=== PATIENT | male | born 1955 | race Caucasian/White ===

== ENCOUNTER 2016-10-31 18:49 | Emergency (ER) | payer OTHER ==
[~2016-10-31 18:49] MED LIST: ASPI81CH CHEW; DIAZ10TA PO; HYOS0.128 PO; IPRA0.02 NEB; MONT10TA2 PO; TERA1CAP3 PO; VENL100T PO
[2016-10-31 18:56] VITALS: BP 148/100; PULSE 94; RESP 18; TEMP 97.8
[2016-10-31] MEDS ORDERED: LIDOCAINE 1%/EPINEPHrine 1:100,000 SOLN 20 ML VIAL INFIL ONE (19:15)
--- NOTE | 2016-10-31 19:22 | PD ---
HPI Chief Complaint: Laceration/Skin Injury Time Seen by Provider: 19:18 Travel History International Travel<30 days: No Contact w/Intl Traveler<30days: No Traveled to known affect area: No History of Present Illness HPI 61-year-old male with PMH of CP, HTN presents to the ED for evaluation of chin laceration. The patient's caregiver is at bedside. She states that the patient states pushed himself up in the chair with his legs, lost balance, fell forward, striking his chin on the hardwood floor. He did not lose consciousness. He denies headache, dizziness, facial or jaw pain. Denies malocclusion of the teeth. Unsure of his last tetanus immunization. PFSH Past Medical History Hx Anticoagulant Therapy: No Arthritis: No Asthma: No Autoimmune Disease: No Blood Disorders: No Anxiety: No Depression: Yes Heart Rhythm Problems: No Cancer: No Cardiovascular Problems: Yes (HTN) High Cholesterol: No Chemotherapy: No Chest Pain: No Congestive Heart Failure: No COPD: No Cerebrovascular Accident: No Diabetes: No Diminished Hearing: No Endocrine: No Gastrointestinal Disorders: No GERD: Yes Glaucoma: No Genitourinary: No Headaches: No Hepatitis: No Hiatal Hernia: Yes Hypertension: Yes Immune Disorder: No Kidney Stones: Yes Musculoskeletal: Yes (SCOLIOSIS) Neurologic: Yes (CEREBRAL PALSEY) Psychiatric: Yes Reproductive: No Respiratory: Yes Immunizations Current: Yes Myocardial Infarction: No Radiation Therapy: No Renal Failure: No Seizures: No Sickle Cell Disease: No Sleep Apnea: Yes Thyroid Disease: No Ulcer: No Past Surgical History Abdominal Surgery: No AICD: No Appendectomy: No Arteriovenous Shunt: No Cardiac Surgery: No Cholecystectomy: No Coronary Stent: Yes Ear Surgery: No Endocrine Surgery: No Eye Surgery: No Genitourinary Surgery: No Gynecologic Surgery: No Joint Replacement: No Neurologic Surgery: Yes ("PACEMAKER" FOR BRAIN STIMULATION) Oral Surgery: No Pacemaker: Yes (BRAIN PACEMAKER) Thoracic Surgery: No Other Surgery: Yes Social History Alcohol Use: Yes (BEER OCC) Tobacco Use: No Substance Use: No Allergies-Medications (Allergen,Severity, Reaction): Coded Allergies: No Known Allergies (Verified , 10/31/16) Reported Meds & Prescriptions Reported Meds & Active Scripts Active Hyoscyamine (Hyoscyamine Sulfate) 0.125 Mg Tab 0.125 Mg PO BID Diazepam 10 Mg Tab 10 Mg PO BID PRN Reported Aspirin 81 Mg Chew 81 Mg CHEW DAILY Terazosin (Terazosin HCl) 1 Mg Cap 1 Mg PO HS Singulair (Montelukast Sodium) 10 Mg Tab 10 Mg PO DAILY Ipratropium Neb (Ipratropium [place]) 0.5 Mg/2.5 Ml Amp 0.5 Mg NEB Q8HR PRN Effexor (Venlafaxine HCl) 100 Mg Tab 100 Mg PO Q8H Review of Systems Except as stated in HPI: all other systems reviewed are Neg Physical Exam Exam Limitations: Clinical Condition (cerebral palsy) Narrative GENERAL: Well-nourished, alert white male in no acute distress. SKIN: Warm and dry. There is a 2 cm laceration just left lateral of midline on the distal aspect of the mandible. HEAD: Normocephalic. No tenderness to palpation of the skull. No bony step- offs. No tenderness to palpation of facial bones. No malocclusion of the teeth. EYES: No scleral icterus. No injection or drainage. PERRLA. NECK: Supple, trachea midline. No JVD or lymphadenopathy. CARDIOVASCULAR: Regular rate and rhythm without murmurs, gallops, or rubs. RESPIRATORY: Breath sounds clear and equal bilaterally. No accessory muscle use. GASTROINTESTINAL: Abdomen soft, non-tender, nondistended. MUSCULOSKELETAL: No cyanosis, or edema. Contractures and muscle wasting of the extremities secondary to CP BACK: Nontender. No CVA tenderness. Data Data Last Documented VS Vital Signs Date Time Temp Pulse Resp B/P Pulse Ox O2 Delivery O2 Flow Rate FiO2 10/31/16 19:24 20 10/31/16 18:56 97.8 94 148/100 Orders Lidocai-Epi 1%-1:100,000 Inj (Xylocaine- (10/31/16 19:15) MDM Medical Decision Making Medical Screen Exam Complete: Yes Emergency Medical Condition: Yes Differential Diagnosis laceration versus abrasion versus fracture versus ICH versus other Narrative Course 61-year-old male with PMH of CP, HTN presents to the ED for evaluation of chin laceration. The patient's caregiver is at bedside. She states that the patient states pushed himself up in the chair with his legs, lost balance, fell forward, striking his chin on the hardwood floor. He did not lose consciousness. He denies headache, dizziness, facial or jaw pain. Denies malocclusion of the teeth. Unsure of his last tetanus immunization. Review of the record reveals patient's last tetanus immunization 01/31/15. Vitals reviewed. Physical exam reveals an alert white male in no acute distress. He follows commands appropriately. There is a 2 cm laceration just left lateral to midline on the distal aspect of the mandible. Head is otherwise normocephalic, no tenderness to palpation of the skull. No bony step-offs. No tenderness palpation of facial bones. No malocclusion of the teeth. No other physical complaints. Contractures and wasting of the extremities secondary to CP. I offered the patient is caregiver radiological imaging. She declines at this time, stating that the patient has been himself since the accident, did not lose consciousness. Laceration repair was performed. Please see procedure note for details. I discussed reasons to return to the ED with the patient's care provider. She was educated on wound care, signs of infection. She was instructed to return to the ED with a primary care provider for suture removal in 7-10 days. She indicated understanding of instructions. She is amenable to plan of care. Patient is stable and discharged home. Procedures Procedure Narrative LACERATION LOCATION: Inferior to the mandible, just left of midline LENGTH: 2 cm NUMBER OF STITCHES/ARNOLD: 4 REPAIR: The area of the laceration was prepped with Betadine and sterilely draped. The laceration was infiltrated with 1% lidocaine with epinephrine. The wound was copiously irrigated and explored without evidence of foreign body, tendon injury or neurovascular injury. The wound was closed using 4-0 Prolene. This was a single layer repair. A sterile dressing was applied. The patient was advised to keep the dressing clean and dry. Patient tolerated the procedure well. Diagnosis Primary Impression: Chin laceration Qualified Code: S01.81XA - Chin laceration, initial encounter Referrals: Primary Care Physician Patient Instructions: Facial Laceration (ED), General Instructions Additional Instructions: Rest, hydrate. Do not change the dressing for 48 hours. You may bathe normally. Do not submerge the wound. After bathing pat of wound dry. Allow the wound to air dry for 10-15 minutes. Apply a thin layer of antibiotic ointment and a clean, dry dressing. Utilize [id number] pain medications, as described on the label, as needed. Monitor for signs of infection such as redness, swelling, pus, warmth of the wound, fevers. Suture removal in 7-10 days. Follow-up with your primary care provider this week. Return to the ED for any urgent or emergent medical condition. Disposition: 01 DISCHARGE HOME Condition: Stable Alondra Rod Oct 31, 2016 19:22
[2017-01-11] MEDS ORDERED: TERA1CAP3 PO (15:47)
[2017-01-11] MEDS ORDERED: IPRA0.02 NEB (15:47)
[2017-01-11] MEDS ORDERED: VENL100T PO (15:47)
[2017-01-11] MEDS ORDERED: MONT10TA2 PO (15:47)
[2017-01-11] MEDS ORDERED: HYOS0.128 PO (15:47)
[2017-01-11] MEDS ORDERED: DIAZ10TA PO (15:47)
[2017-01-11] MEDS ORDERED: [UNRECOGNIZED DRUG - CODE] (15:57)
[2017-01-11] MEDS ORDERED: [UNRECOGNIZED DRUG - SUPPLY] ×2 (16:02→16:09)
== END 2016-10-31 20:14 | disposition home or self-care (01) ==
LOC: PHEFT 18:49
DX: S01.81XA Laceration without foreign body of other part of head, initial encounter (principal); I10 Essential (primary) hypertension; M41.9 Scoliosis, unspecified; Z87.442 Personal history of urinary calculi; W18.39XA Other fall on same level, initial encounter; Y93.89 Activity, other specified; Y92.9 Unspecified place or not applicable
CPT/HCPCS: 12011